=== PATIENT | female | born 2000 | race African-American/Black ===

== ENCOUNTER 2024-04-27 21:51 | Emergency (ER) | payer OTHER ==
[~2024-04-27] VITALS: Ht 172.7 cm; Wt 49.0 kg
[2024-04-27 21:58] VITALS: O2SAT 99
[2024-04-28] MEDS: HYDROCODONE/ACETAMINOPHEN 5/325MG TABLET PO ONE (00:14)
[2024-04-28] MEDS ORDERED: LIDO700A15 TP (02:35)
[2024-04-28] MEDS ORDERED: METH-653 MT (02:35)
[2024-04-28] MEDS ORDERED: IBUP-2028 MT (02:35)
[2024-04-28 02:58] VITALS: BP 98/65; PULSE 77; RESP 18; TEMP 36.55848; O2SAT 99
== END 2024-04-28 03:09 | disposition home or self-care (01) ==
LOC: ER 21:51
DX: S00.33XA Contusion of nose, initial encounter (principal); M25.562 Pain in left knee; X58.XXXA Exposure to other specified factors, initial encounter; Y93.9 Activity, unspecified; Y92.89 Other specified places as the place of occurrence of the external cause; Y99.8 Other external cause status
CPT/HCPCS: 70486; 73552; 73562; 73590; 81025; 99284